=== PATIENT | male | born 1995 | race Caucasian/White ===

== ENCOUNTER 2017-05-20 02:17 | Inpatient (IN) | payer OTHER ==
[2017-05-20] MEDS ORDERED: HYDROmorphONE/DILAUDID 1 MG/ML SYR ONE (02:23)
[2017-05-20] MEDS ORDERED: HYDROmorphONE/DILAUDID 1 MG/ML SYR IVP ONE ×3 (02:24→04:00)
[2017-05-20] MEDS ORDERED: NS 1,000 ML IV ONE (02:24)
[2017-05-20 02:38] LABS: % IMMATURE GRANULYOCYTES 2.4 % (0.0-1.1); ABSOLUTE IMMATURE GRANULOCYTES 0.26 10^3/uL (0.00-0.10); ADD DIFF? NO; ADD MORPH? NO; ADD SCAN? NO; ATYPICAL LYMPHOCYTE FLAG 0 (0-99); FRAGMENT RBC FLAG 0 (0-99); HEMATOCRIT 46.5 % (40.0-51.0); HEMOGLOBIN 16.3 g/dL (13.7-17.5); LEFT SHIFT FLG 20 (0-99); LIPEMIA HEMOLYSIS FLAG 90 (0-99); MEAN CELL HEMOGLOBIN 30.8 pg (27.9-34.1); MEAN CELL HEMOGLOBIN CONCENTR. 35.1 g/dL (32.4-36.7); MEAN CELL VOLUME 87.9 fL (81.5-99.8); MEAN PLATELET VOLUME 10.5 fL (8.7-11.7); PLATELET CLUMPS FLAG 20 (0-99); PLATELET COUNT 242 10^3/uL (150-400); RED BLOOD CELL COUNT 5.29 10^6/uL (4.40-6.38); RED CELL DISTRIBUTION WIDTH 12.4 % (11.5-15.2)
[2017-05-20 02:50] LABS: ANION GAP 19 mEq/L (8-16); CARBON DIOXIDE 21 mEq/l (22-31); CHLORIDE 105 mEq/L (97-110); ETHANOL SERUM 93 mg/dL (0-10); GLOMERULAR FILTRATION RATE > 60; GLUCOSE 116 mg/dL (70-100); POTASSIUM 3.6 mEq/L (3.5-5.2); SODIUM 145 mEq/L (134-144)
[2017-05-20] MEDS ORDERED: ONDANSETRON 4 MG/2 ML VIAL IVP PRN (03:57)
[2017-05-20] MEDS ORDERED: DIAZEPAM 5 MG TAB PO PRN (03:57)
[2017-05-20] MEDS ORDERED: LR 1,000 ML IV SCH (04:00)
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
[2017-05-20] MEDS ORDERED: POVIDONE-IODINE 30 GM OINTTUBE TP ONE (08:54)
[2017-05-20] MEDS ORDERED: BUPIVACAINE 0.25% 30 ML SDV ONE ×2 (08:54→17:40)
[2017-05-20] MEDS ORDERED: ceFAZolin 2 GM/DEXTROSE 100 ML IV ONE (09:02)
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
[2017-05-20] MEDS ORDERED: CEFAZOLIN 2 GM/DEXTROSE/100 ML BAG IV ONE (12:30)
[2017-05-20] MEDS ORDERED: fentaNYL 100 MCG/2 ML INJ ONE ×3 (14:22→15:32)
[2017-05-20] MEDS ORDERED: PROPOFOL/EMULSION 500 MG/50 ML BOTTLE IV ONE (14:22)
--- NOTE | 2017-05-20 15:10 | PDANEPAE ---
ANE Past Medical History - Pulmonary History Hx Oxygen in Use at Home: No Hx Sleep Apnea: No Sleep Apnea Screening Result - Last Documented: Negative - Endocrine History Hx Diabetes: No - Chronic Pain History Chronic Pain: No ANE Patient History - Allergies Allergies/Adverse Reactions: No Known Allergies Allergy (Unverified 05/20/17 02:51) - Home Medications Home Medications: NK [No Known Home Meds] 05/20/17 [Last Taken Unknown] - NPO status NPO Since - Liquids (Date): 05/19/17 NPO Since - Liquids (Time): 01:30 NPO Since - Solids (Date): 05/19/17 NPO Since - Solids (Time): 01:30 - Smoking Hx Smoking Status: Current every day smoker - Alcohol Use Alcohol Use: Occasionally ANE Labs/Vital Signs - Labs Result Diagrams: 05/20/17 02:32 05/20/17 02:32 - Vital Signs Blood Pressure: 137/85 Heart Rate: 104 Respiratory Rate: 18 O2 Sat (%): 91 Height: 185.42 cm Weight: 93.44 kg ANE Physical Exam - Airway Neck exam: FROM Mouth exam: normal dental/mouth exam - Pulmonary Pulmonary: no respiratory distress - Cardiovascular Cardiovascular: regular rate and rhythym - ASA Status ASA Status: I ANE Anesthesia Plan Anesthesia Plan: GA w LMA Urgent/Emergent Case: Celina garcia completed preop but documented later for safe timely pt care
[2017-05-20] MEDS ORDERED: ONDANSETRON 4 MG/2 ML VIAL ONE (15:34)
[2017-05-20] MEDS ORDERED: ROCURONIUM 50 MG/5 ML VIAL ONE ×2 (15:34→15:57)
[2017-05-20] MEDS ORDERED: DEXAMETHASONE 4 MG/ML VIAL ONE (15:34)
[2017-05-20] MEDS ORDERED: HYDROmorphONE/DILAUDID 2 MG/ML INJ ONE (16:24)
[2017-05-20] MEDS ORDERED: SUGAMMADEX SODIUM 200 MG/2 ML VIAL IVP ONE (17:34)
[2017-05-20] MEDS ORDERED: fentaNYL 100 MCG/2 ML INJ IVP PRN (17:41)
[2017-05-20] MEDS ORDERED: PROMETHAZINE HCL 25 MG/ML INJ IVP PRN (17:41)
[2017-05-20] MEDS ORDERED: MEPERIDINE 25 MG/ML SYR IVP PRN (17:41)
[2017-05-20] MEDS ORDERED: HYDROmorphONE/DILAUDID 1 MG/ML SYR IVP PRN (17:41)
[2017-05-20] MEDS ORDERED: NALOXONE HCL 0.4 MG/ML INJ IVP PRN (17:41)
[2017-05-20] MEDS ORDERED: LR 500 ML IV PRN (17:41)
--- NOTE | 2017-05-20 18:15 | POSTOPPROG ---
Post Op Note Date of Operation: 05/20/17 Surgeon: Diego Maza Human Resources District Manager: Taisha Corbin PA-c Anesthesiologist: Dr. Newman Anesthesia: GET(General Endotracheal) Pre-op Diagnosis: Right displaced midshaft femur fracture Post-op Diagnosis: Right displaced midshaft femur fracture Procedure: Reduction and fixation of R femur fracture with IM elkin Findings: See full dictation Inf/Abcess present in the surg proc area at time of surgery?: No Depth: Organ Space EBL: 100-500
[2017-05-20] MEDS ORDERED: LABETALOL HCL 5 MG/ML 20 ML MDV ONE (18:37)
[2017-05-20] MEDS: LABETALOL HCL 5 MG/ML 20 ML MDV IVP PRN ×2 (18:38→18:52)
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
[2017-05-20] MEDS: ceFAZolin 2 GM/DEXTROSE 100 ML IV SCH (23:02)
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
[2017-05-21] MEDS: oxyCODONE IR 5 MG TAB PO PRN ×5 (02:29→23:00)
[2017-05-21 04:47] LABS: HEMATOCRIT 31.2 % (40.0-51.0); HEMOGLOBIN 10.9 g/dL (13.7-17.5)
[2017-05-21 04:59] LABS: ANION GAP 9 mEq/L (8-16); CALCIUM 8.6 mg/dL (8.5-10.4); CARBON DIOXIDE 26 mEq/l (22-31); CHLORIDE 98 mEq/L (97-110); CREATININE 0.8 mg/dL (0.7-1.3); GLOMERULAR FILTRATION RATE > 60; GLUCOSE 118 mg/dL (70-100); POTASSIUM 4.1 mEq/L (3.5-5.2); SODIUM 133 mEq/L (134-144)
[2017-05-21] MEDS: ceFAZolin 2 GM/DEXTROSE 100 ML IV SCH ×2 (07:02→15:31)
[2017-05-21] MEDS: ENOXAPARIN 40 MG/0.4 ML SYR SC SCH (08:32)
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
[2017-05-21] MEDS: ZOLPIDEM TARTRATE 5 MG TAB PO PRN (22:39)
[2017-05-22] MEDS: oxyCODONE IR 5 MG TAB PO PRN ×3 (08:48→22:00)
[2017-05-22] MEDS: ENOXAPARIN 40 MG/0.4 ML SYR SC SCH (08:48)
[2017-05-22] MEDS ORDERED: LACTULOSE 20 GM/30 ML UDCUP PO PRN (11:27)
[2017-05-22] MEDS ORDERED: BISACODYL 10 MG SUPP PR PRN (11:27)
[2017-05-22] MEDS ORDERED: POLYETHYLENE GLYCOL 3350 17 GM PKT PO PRN (11:27)
[2017-05-22] MEDS ORDERED: MAGNESIUM HYDROXIDE 30 ML UDCUP PO PRN (11:27)
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
[2017-05-22] MEDS: SENNOSIDES/DOCUSATE SODIUM TAB PO SCH (20:53)
[2017-05-22] MEDS: ZOLPIDEM TARTRATE 5 MG TAB PO PRN (22:00)
[2017-05-23] MEDS: oxyCODONE IR 5 MG TAB PO PRN ×3 (05:26→14:29)
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
[2017-05-23 08:06] VITALS: BP 122/57; PULSE 82; RESP 16; TEMP 99.3; O2SAT 89
[2017-05-23] MEDS: SENNOSIDES/DOCUSATE SODIUM TAB PO SCH (09:14)
[2017-05-23] MEDS: ENOXAPARIN 40 MG/0.4 ML SYR SC SCH (09:14)
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
== END 2017-05-23 14:55 | DRG 482 ==
LOC: OBSVTOIN 03:33 → F3N 04:17
PROVIDERS: ADMIT Surgery; ATTEND Orthopaedic Surgery
PROC: 0QS806Z Reposition Right Femoral Shaft with Intramedullary Internal Fixation Device, Open Approach (ICD-10-PCS; principal; 2017-05-20 13:30)
DX: S72.351A Displaced comminuted fracture of shaft of right femur, initial encounter for closed fracture (principal); V27.4XXA Motorcycle driver injured in collision with fixed or stationary object in traffic accident, initial encounter; Y92.414 Local residential or business street as the place of occurrence of the external cause; F17.210 Nicotine dependence, cigarettes, uncomplicated; Y90.4 Blood alcohol level of 80-99 mg/100 ml
CPT/HCPCS: 80305; 92507-GN; 92523-GN; 96374; 97110-GP; 97116-GP; 97162-GP; 97166-GO; 97530-GP; 97535-GO; C1713; C1769; G0480; J0171; J0690; J1100; J1170; J1650; J2405; J2704; J3010; J3490

== ENCOUNTER 2018-11-13 22:26 | Emergency (ER) | payer OTHER ==
[2018-11-13] MEDS ORDERED: TDAP ADULT 0.5 ML INJ (BOOSTRIX) IM ONE (22:31)
--- NOTE | 2018-11-13 22:36 | EDPHY ---
H & P Stated Complaint: Mech fall into dresser, lower lip lac, -LOC +ETOH Time Seen by Provider: 11/13/18 22:31 HPI/ROS: HPI: This is a 22-year-old male who presents with Chief Complaint: Mech fall into dresser, lower lip lac, -LOC +ETOH Location: Lower lip Quality: Laceration Duration: Prior to arrival Signs and Symptoms: + bleeding, no radiation, no numbness, no weakness, no tingling, no incontinence, no decreased range of motion, no swelling, + pain, no fever Timing: Acute Severity: [id number] Context: Patient reports that he accidentally tripped and fell and cut his bottom lip. He reports that he has been drinking alcohol. He reports that he fell forward landing into a dresser. Unsure of tetanus status. Denies LOC/ head injury/neck pain/dizziness/nausea/vomiting/amnesia. Modifying Factors: Applied direct pressure. Comment: ROS: A comprehensive 10 system review of systems is otherwise negative aside from elements mentioned in the history of present illness. MEDICAL/SURGICAL/SOCIAL HISTORY: Medical history: Generally healthy. Does not take any regular medications. bilat radial fx's, multiple rib fx's Surgical history: Denies Social history: Current every day smoker CONSTITUTIONAL: Well-developed, well-nourished, adult white male, awake and alert, no obvious distress HEENT: normocephalic, PERRL, EOMI. no globe entrapment, no raccoon eyes. no Van signs.Tympanic membranes clear. No tympanic membrane rupture. Nares patent; no septal hematoma. Oropharynx clear, lower lip shows approximately 3 mm irregular laceration through the vermilion border-dried blood noted around edges; inside labial mucosa of the lower lip shows 4 mm v-shaped laceration not through and through. no exudate and moist pink mucosa. No malocclusion. no dental trauma. Airway patent. No lymphadenopathy. NECK: supple, no midline tenderness, flexion 45 degrees, extension 45 degrees, right and left lateral flexion 45 degrees. No meningismus. Cardiovascular: Normal S1/S2, regular rate, regular rhythm, without murmur rub or gallop. PULMONARY/CHEST: Symmetrical and nontender. no crepitus. Clear to auscultation bilaterally. Good air movement. No accessory muscle usage. ABDOMEN: Soft, nondistended, nontender, no ecchymosis, no rebound, no guarding , no peritoneal signs, no masses or organomegaly. No CVAT. EXTREMITIES: 2/2 pulses, no deformities, no clubbing, no cyanosis or edema. NEUROLOGICAL: no focal neuro deficits. GCS 15. SKIN: Warm and dry, no erythema. no rash. Good capillary refill. Source: Patient Exam Limitations: No limitations - Personal History Current Tetanus/Diphtheria Vaccine: Unsure Current Tetanus Diphtheria and Acellular Pertussis (TDAP): Unsure - Medical/Surgical History Hx Asthma: No Hx Chronic Respiratory Disease: No Hx Diabetes: No Hx Cardiac Disease: No Hx Renal Disease: No Hx Cirrhosis: No Hx Alcoholism: No Hx HIV/AIDS: No Hx Splenectomy or Spleen Trauma: No Other PMH: bilat radial fx's, multiple rib fx's, - Social History Smoking Status: Current every day smoker Constitutional: Initial Vital Signs Temperature (C) 36.8 C 11/13/18 22:27 Heart Rate 58 L 11/13/18 22:27 Respiratory Rate 20 11/13/18 22:27 Blood Pressure 117/89 H 11/13/18 22:27 O2 Sat (%) 96 11/13/18 22:27 O2 Delivery Mode Room Air Allergies/Adverse Reactions: No Known Allergies Allergy (Unverified 11/13/18 22:26) Home Medications: Medication Instructions Recorded NK [No Known Home Meds] 11/13/18 Medical Decision Making Procedures: Procedure: Laceration repair. Verbal consent was obtained from the patient. The 3-4 mm, linear, simple laceration on the lower lip vermilion border was anesthetized in the usual fashion using 4 mL 1% lidocaine without epinephrine. The wound was irrigated, draped and explored to its base with a gloved finger. There were no deep structures involved. No tendon injury was identified. The wound was repaired with #7; 5 0 Vicryl. Good hemostasis was achieved and patient tolerated procedure well. The procedure was performed by myself. Procedure: Laceration repair. Verbal consent was obtained from the patient. The 4 mm, simple, irregular laceration on the inner lower lip buccal mucosa was anesthetized in the usual fashion using 4 mL of 1% lidocaine without epinephrine The wound was irrigated , draped and explored to its base with a gloved finger. There were no deep structures involved. No tendon injury was identified. The wound was repaired with #4, 5 0 Vicryl. Good hemostasis was achieved and patient tolerated procedure well. The procedure was performed by myself. ED Course/Re-evaluation: Tetanus booster ordered. Fall mechanical in nature. Local anesthesia provided; copiously irrigated Based on nexus protocol head CT or cervical CT imaging not indicated 2 lacerations repaired with absorbable sutures. Verbal and written wound care instructions provided. No signs of neurovascular compromise/tenting of skin/compartment syndrome/ extremities and joints examined above and below area of concern and are neurovascularly intact. This patient was seen under the supervision of my secondary supervising physician. I evaluated care for this patient attending. Discussed this patient with Dr. Charles. Differential Diagnosis: Head injury including but not limited to concussion, skull fracture, intraparenchymal contusion, subarachnoid, subdural and epidural hematoma. - Data Points Medications Given: Discontinued Medications Diphtheria/Tetanus/Acell Pertussis (Boostrix) 0.5 ml IM .ONCE ONE Stop: 11/13/18 22:32 Last Admin: 11/13/18 22:54 Dose: 0.5 ml Departure - Departure Disposition: Home, Routine, Self-Care Clinical Impression: Laceration of vermilion border of lower lip without complication Qualifiers: Encounter type: initial encounter Qualified Code(s): S01.511A - Laceration without foreign body of lip, initial encounter Laceration of buccal mucosa without complication Qualifiers: Encounter type: initial encounter Qualified Code(s): S01.512A - Laceration without foreign body of oral cavity, initial encounter Condition: Good Instructions: Facial Laceration (ED), Care For Your Absorbable Stitches (ED) Additional Instructions: If any of your teeth have pain or become loose, follow-up with Dental aide. Eat a soft diet for the next 24-48 hours. Swish and spit with dilute hydrogen peroxide after every meal. Take Tylenol 650 mg every 4 hr and/or ibuprofen 600 mg every 8 hr as needed for pain. Your lacerations were closed with absorbable sutures today. They do not need to be removed as they will slowly dissolve over the next few days. Referrals: ZACHERY CARCAMO [Other] - As per Instructions [facility],. [Clinic] - As per Instructions Dental [facility] [Outside] - As per Instructions
[2018-11-13 23:09] VITALS: BP 114/70
== END 2018-11-13 23:23 | disposition home or self-care (01) ==
PROC: 0CQ1XZZ Repair Lower Lip, External Approach (ICD-10-PCS; principal; 2018-11-13)
DX: S01.511A Laceration without foreign body of lip, initial encounter (principal); Z23 Encounter for immunization; W01.0XXA Fall on same level from slipping, tripping and stumbling without subsequent striking against object, initial encounter